=== PATIENT | male | born 1975 | race Caucasian/White ===

== ENCOUNTER 2024-02-16 20:06 | Inpatient (IN) | payer OTHER ==
[~2024-02-16] VITALS: Ht 167.6 cm; Wt 110.7 kg
[2024-02-16 20:26] VITALS: BP 143/90; PULSE 99; RESP 14; TEMP 99.3; O2SAT 98
[2024-02-16] MEDS: NACL 0.9% 1,000 ML IV ONE (21:24)
[2024-02-16 21:46] LABS: BASOPHILS % (AUTO) 0.4 % (0.0-2.0); EOSINOPHILS % (AUTO) 0.5 % (0.0-4.0); HEMATOCRIT 46.3 % (36-52); HEMOGLOBIN 15.9 g/dL (12.0-18.0); LYMPHOCYTES % (AUTO) 12.6 % (20.5-51.1); MEAN CORPUSCULAR HEMOGLOBIN 30 pg (27-31); MEAN CORPUSCULAR HGB CONC 34 g/dL (33-37); MEAN CORPUSCULAR VOLUME 86.7 fL (80-94); MONOCYTES # (AUTO) 1.1 K/uL (0.8-1.0); MONOCYTES % (AUTO) 13.7 % (1.7-9.3); NEUTROPHILS % (AUTO) 72.8 % (42.2-75.2); PLATELET COUNT (AUTO) 271 K/uL (140-450); RED BLOOD CELL COUNT(AUTO) 5.33 MIL/uL (4.20-6.10); RED CELL DISTRIBUTION WIDTH 13.3 % (11.6-13.7); WHITE BLOOD COUNT (AUTO) 8.3 K/uL (4.8-10.8)
[2024-02-16 21:46] LABS: APPEARANCE,URINE CLEAR (CLEAR); BILIRUBIN,URINE NEGATIVE (NEGATIVE); BLOOD, URINE 1+ (NEGATIVE); COLOR,URINE YELLOW (YELLOW); LEUKOCYTE ESTERASE ,URINE NEGATIVE (NEGATIVE); NITRITE, URINE NEGATIVE (NEGATIVE); PH,URINE 6.5 (5.0-9.0); PROTEIN,URINE NEGATIVE (NEGATIVE); UGLUCOSE NEGATIVE (NEGATIVE)
[2024-02-16 21:59] LABS: ANION GAP 16.3 (8-16); CALCIUM 8.6 mg/dL (8.5-10.1); CARBON DIOXIDE 23.9 mmol/L (21-32); CREATININE 1.3 mg/dL (0.6-1.3); POTASSIUM 3.2 mmol/L (3.5-5.1)
[2024-02-16 22:00] LABS: INR 0.94 (0.8-1.2); PARTIAL THROMBOPLASTIN TIME 28.2 secs (22-35.6); PROTHROMBIN TIME 9.9 secs (10.8-13.4)
[2024-02-16 22:06] LABS: MONOTEST NEGATIVE (NEGATIVE)
[2024-02-16 22:11] LABS: ALANINE AMINOTRANSFERASE 159 U/L (12-78); ALBUMIN 3.8 g/dL (3.4-5.0); ALKALINE PHOSPHATASE 133 U/L (50-136); ASPARTATE AMINOTRANSFERASE 78 U/L (15-37); BILIRUBIN,DIRECT 0.4 mg/dL (0.0-0.3); CREATINE KINASE, TOTAL 44 U/L (39-308); LIPASE 81 U/L (16-77); MAGNESIUM 2.1 mg/dL (1.8-2.4); PHOSPHORUS 3.3 mg/dL (2.5-4.9); THYROID STIMULATING HORMONE 0.67 uIU/mL (0.34-3.74); TOTAL BILIRUBIN 1.1 mg/dL (0.0-1.0); TOTAL PROTEIN, SERUM 7.7 g/dL (6.4-8.2)
[2024-02-16 22:19] LABS: FLU A ANTIGEN negative (NEGATIVE); FLU B ANTIGEN NEGATIVE (NEGATIVE)
[2024-02-16] MEDS: ASPIRIN 81 MG TAB.CHEW PO ONE (22:27)
[2024-02-16] MEDS ORDERED: METF-1139 PO (22:29)
[2024-02-16] MEDS ORDERED: LOSA25TA43 PO (22:29)
[2024-02-16] MEDS ORDERED: HEPARIN PER PHARMACY MC PRN (23:15)
[2024-02-16] MEDS ORDERED: DEXTROSE 50% 50 ML SYR IVP PRN (23:20)
[2024-02-16 23:57] LABS: CHOL/HDL RATIO 7.1 (1-4.5); MAGNESIUM 2.1 mg/dL (1.8-2.4)
[2024-02-16 23:59] LABS: INR 0.97 (0.8-1.2); PARTIAL THROMBOPLASTIN TIME 43.7 secs (22-35.6); PROTHROMBIN TIME 10.2 secs (10.8-13.4)
[2024-02-17] VITALS (11 sets, daily range): BP systolic 91–131; BP diastolic 43–87; PULSE 59–99; RESP 18; TEMP 97–98.6; O2SAT 95–100
[2024-02-17] MEDS: hePARIN / DEXT 5% PREMIX 250 ML IV SCH (00:04)
[2024-02-17] MEDS: ACETAMINOPHEN EXTRA STRENGTH 500 MG TAB PO PRN (03:11)
[2024-02-17] MEDS: BLOOD GLUCOSE MONITORING 1 DEV DEV FS SCH (06:30)
[2024-02-17 06:49] LABS: BASOPHILS % (AUTO) 0.5 % (0.0-2.0); EOSINOPHILS # (AUTO) 0.1 K/uL (0-0.4); EOSINOPHILS % (AUTO) 1.4 % (0.0-4.0); HEMATOCRIT 42.9 % (36-52); HEMOGLOBIN 14.7 g/dL (12.0-18.0); LYMPHOCYTES # (AUTO) 1.1 K/uL (2.0-11.5); LYMPHOCYTES % (AUTO) 13.8 % (20.5-51.1); MEAN CORPUSCULAR HEMOGLOBIN 30 pg (27-31); MEAN CORPUSCULAR HGB CONC 34 g/dL (33-37); MEAN CORPUSCULAR VOLUME 86.1 fL (80-94); MONOCYTES # (AUTO) 1.2 K/uL (0.8-1.0); NEUTROPHILS # (AUTO) 5.5 K/uL (1.8-7.7); NEUTROPHILS % (AUTO) 69.3 % (42.2-75.2); PLATELET COUNT (AUTO) 263 K/uL (140-450); RED BLOOD CELL COUNT(AUTO) 4.99 MIL/uL (4.20-6.10); RED CELL DISTRIBUTION WIDTH 13.2 % (11.6-13.7)
[2024-02-17 07:52] LABS: ANION GAP 12.7 (8-16); CALCIUM 8.3 mg/dL (8.5-10.1); CARBON DIOXIDE 26.5 mmol/L (21-32); CREATININE 1.1 mg/dL (0.6-1.3); POTASSIUM 3.2 mmol/L (3.5-5.1)
[2024-02-17] MEDS: ASPIRIN 81 MG TAB.CHEW PO SCH (08:23)
[2024-02-17] MEDS: ATORVASTATIN 20 MG TAB PO SCH (08:24)
[2024-02-17] MEDS: INSULIN LISPRO SLIDING SCALE 100 UNITS/ML VIAL SUBQ PRN (11:35)
[2024-02-17] MEDS: HYDROcodone/APAP 5/325 MG 1 TAB TAB PO PRN (11:38)
[2024-02-17] MEDS: POTASSIUM CHLORIDE 10 MEQ TABER PO SCH (16:04)
[2024-02-17 19:41] LABS: AMPHETAMINE, URINE NEGATIVE ng/ml (NEG <=1000); BARBITURATE, URINE NEGATIVE ng/ml (NEG <=200); BENZODIAZEPINE, URINE NEGATIVE ng/mL (NEG <=200); CANNABINOID, URINE NEGATIVE ng/mL (NEG <=50); COCAINE, URINE NEGATIVE ng/mL (NEG <=300); OPIATE, URINE NEGATIVE ng/mL (NEG <=2000); PHENCYCLIDINE SCREEN,URINE NEGATIVE ng/mL (NEG <=25)
[2024-02-17] MEDS: METOPROLOL 25 MG TAB PO SCH (20:48)
[2024-02-17] MEDS: MEDS-TO-BEDS MC SCH (20:48)
[2024-02-18] VITALS (9 sets, daily range): BP systolic 94–102; BP diastolic 50–68; PULSE 54–89; RESP 18–20; TEMP 97–98.5; O2SAT 95–99
[2024-02-19] VITALS: BP 100/65; PULSE 69; PULSE 82; RESP 18; TEMP 97.7; O2SAT 98
[2024-02-19 04:00] VITALS: BP 107/76; PULSE 70; PULSE 81; RESP 18; TEMP 97.2; O2SAT 97
[2024-02-19 06:57] LABS: BASOPHILS % (AUTO) 0.5 % (0.0-2.0); EOSINOPHILS # (AUTO) 0.1 K/uL (0-0.4); EOSINOPHILS % (AUTO) 0.7 % (0.0-4.0); HEMATOCRIT 42.6 % (36-52); HEMOGLOBIN 14.6 g/dL (12.0-18.0); LYMPHOCYTES # (AUTO) 1.4 K/uL (2.0-11.5); LYMPHOCYTES % (AUTO) 17.5 % (20.5-51.1); MEAN CORPUSCULAR HEMOGLOBIN 30 pg (27-31); MEAN CORPUSCULAR HGB CONC 34 g/dL (33-37); MEAN CORPUSCULAR VOLUME 86.8 fL (80-94); MONOCYTES % (AUTO) 12.3 % (1.7-9.3); NEUTROPHILS # (AUTO) 5.7 K/uL (1.8-7.7); PLATELET COUNT (AUTO) 353 K/uL (140-450); RED BLOOD CELL COUNT(AUTO) 4.91 MIL/uL (4.20-6.10); RED CELL DISTRIBUTION WIDTH 13.3 % (11.6-13.7); WHITE BLOOD COUNT (AUTO) 8.2 K/uL (4.8-10.8)
[2024-02-19 08:00] VITALS: BP 116/72; PULSE 78; RESP 18; TEMP 97.8; O2SAT 97
[2024-02-19] MEDS ORDERED: REGADENOSON 0.4 MG/5 ML SYR IV SCH (10:30)
[2024-02-19 12:00] VITALS: BP 121/79; PULSE 86; RESP 18; TEMP 98.2; O2SAT 98
[2024-02-19 16:00] VITALS: BP 123/81; PULSE 92; RESP 18; TEMP 98.5; O2SAT 99
[2024-02-19 20:00] VITALS: BP 124/72; PULSE 83; PULSE 88; RESP 18; TEMP 97.8; O2SAT 98
[2024-02-20] VITALS (7 sets, daily range): BP systolic 111–126; BP diastolic 70–85; PULSE 71–86; RESP 17–18; TEMP 97.4–98; O2SAT 96–98
[2024-02-20] MEDS ORDERED: ATOR40TA PO (17:52)
[2024-02-20] MEDS ORDERED: ASPI-1822 PO (17:52)
== END 2024-02-20 18:28 | disposition home or self-care (01) | DRG 203 ==
LOC: MED 20:06 → MTU 23:13 → OBSVTOIN 23:14 → MTU 02-17 01:33
PROVIDERS: ADMIT Hospitalist; ATTEND Hospitalist
PROC: 4A12XM4 Monitoring of Cardiac Stress, External Approach (ICD-10-PCS; principal; 2024-02-20)
DX: M94.0 Chondrocostal junction syndrome [Tietze] (principal); E87.1 Hypo-osmolality and hyponatremia; K52.9 Noninfective gastroenteritis and colitis, unspecified; E11.9 Type 2 diabetes mellitus without complications; I10 Essential (primary) hypertension; Z20.822 Contact with and (suspected) exposure to COVID-19; E66.9 Obesity, unspecified; Z68.39 Body mass index [BMI] 39.0-39.9, adult; Z79.899 Other long term (current) drug therapy; E87.6 Hypokalemia; R74.01 Elevation of levels of liver transaminase levels
CPT/HCPCS: 36415; 71045; 80048; 80076; 80305; 81003; 82150; 82550; 82948; 83690; 83721; 83735; 84100; 84443; 84484; 85025; 85610; 85730; 86308; 87081; 93005; 93017; A9500; A9502; J1644; J1815; J2785